=== PATIENT | male | born 1955 | race Hispanic/Latino ===

== ENCOUNTER 2018-03-14 13:05 | Inpatient (IN) | payer SELFPAY ==
[2018-03-14 13:38] VITALS: BMI 39.0
[2018-03-14] MEDS ORDERED: Vancomycin 500 mg Inj IVPB STA (13:45)
--- NOTE | 2018-03-14 13:50 | ED PDOC ---
Arrival/HPI - General Time Seen by Provider: 03/14/18 13:38 Historian: Patient - History of Present Illness Narrative History of Present Illness (Text): 62yo male, comes to Emergency room reporting left leg redness and swelling x 5 days. Patient states he initially had a fever and leg pain but denies any such symptoms currently. Patient reports he was seen by his PMD Dr. Scott yesterday and was prescribed oral antibiotics. Otherwise, patient has no additional medical complaints. Symptom Onset: Gradual Past Medical History - Provider Review Nursing Documentation Reviewed: Yes - Cardiac Hx Cardiac Disorders: Yes Hx Hypertension: Yes - Psychiatric Hx Substance Use: No Family/Social History - Physician Review Nursing Documentation Reviewed: Yes Family/Social History: No Known Family HX Smoking Status: cigars Hx Alcohol Use: Yes (moderate use) Hx Substance Use: No Allergies/Home Meds Allergies/Adverse Reactions: Allergies No Known Allergies Allergy (Verified 03/14/18 13:35) Home Medications: Home Meds Medication Instructions Recorded Confirmed RX: Doxycycline Monohydrate 100 mg PO BID 03/14/18 03/14/18 [Mondoxyne Nl] RX: amLODIPine [Norvasc] 10 mg PO DAILY 03/14/18 03/14/18 RX: Lisinopril/Hydrochlorothiazide 1 tab PO DAILY 03/17/18 03/17/18 [Lisinopril-Hctz 20-25 mg Tab] Review of Systems - Physician Review All systems were reviewed & negative as marked: Yes - Review of Systems Constitutional: absent: Fevers Musculoskeletal: Other (left leg swelling) Skin: Cellulitis Physical Exam - Physical Exam Narrative Physical Exam (Text): Gen: VS reviewed, alert, well developed, well nourished, nontoxic, mild distress. ENT: normal pharynx Eye: EOMI, PERRL Neck: no JVD, supple, no adenopathy CV: regular rate, regular rhythm, no rubs, no murmur, no gallops, S1, S2, pulses equal and strong Pulm: no distress, clear to auscultation, no wheeze, no rhonchi, breath sounds equal, no rales Abd: soft, nontender, no guarding, no rebound, no rigidity, normal bowel sounds Ext: (+) edema to left lower extremity Skin: (+) erythema and warm noted to left lower extremity. (+) ulceration anterior left lower extremity with purulent discharge Psych: responds appropriately to questions, normal affect Neuro: oriented x 3, CN2-12 intact grossly, motor intact, sensation intact Vital Signs Temp Pulse Resp BP Pulse Ox 03/14/18 13:37 98.2 F 76 18 156/72 H 97 Medical Decision Making ED Course and Treatment: Impression: 62yo male, cellulitis of left lower extremity; r/o DVT Plan: -- Labs -- US Doppler LLE -- Reassess and disposition Progress Notes: 03/14/18 16:[address] scott, patient to be admitted for iv abx treatment of left lower leg cellulitis. patient failed outpt po abx with an extensive cellulitis. dr. alvarez for consult. - RAD Interpretation Radiology Orders: 03/14/18 13:45 DUPLEX LOWER EXTRM VEIN LEFT [US] Stat - Medication Orders Current Medication Orders: Vancomycin HCl (Vancomycin Inj) 1,750 mg 15 mg/kg (1750 mg) IVPB STAT STA; Protocol Stop: 03/14/18 13:46 - Scribe Statement The provider has reviewed the documentation as recorded by the Negraibe Ariela Daugherty Provider Scribe Attestation: All medical record entries made by the Scribe were at my direction and personally dictated by me. I have reviewed the chart and agree that the record accurately reflects my personal performance of the history, physical exam, medical decision making, and the department course for this patient. I have also personally directed, reviewed, and agree with the discharge instructions and disposition. Disposition/Present on Arrival - Present on Arrival Any Indicators Present on Arrival: No History of DVT/PE: No History of Uncontrolled Diabetes: No Urinary Catheter: No History of Decub. Ulcer: No History Surgical Site Infection Following: None - Disposition Have Diagnosis and Disposition been Completed?: Yes Diagnosis: Cellulitis Disposition: HOSPITALIZED Disposition Time: 16:09 Patient Plan: Admission Condition: STABLE
[2018-03-14] MEDS ORDERED: Vancomycin 1.75 GM in Sodium Chloride 0.9% 500 ML IVPB ONE (14:00)
[2018-03-14 14:24] LABS: BASO # 0.03 K/mm3 (0.0-2.0); BASO % 0.2 % (0.0-3.0); EOS # 0.1 (0.0-0.7); EOS % 0.9 % (1.5-5.0); GRAN # 10.46 (1.4-6.5); GRAN % 79.7 % (50.0-68.0); HEMOGLOBIN 13.5 g/dL (14.0-18.0); LYMPH # 1.4 (1.2-3.4); LYMPH % 10.3 % (22.0-35.0); MEAN CORPUSCULAR HEMOGLOBIN 31.8 pg (25.0-35.0); MEAN CORPUSCULAR HGB CONC 34.5 g/dl (31.0-37.0); MONO # 1.2 (0.1-0.6); MONO % 8.9 % (1.0-6.0); RBC 4.25 10^6/uL (3.5-6.1); WHITE BLOOD COUNT 13.1 10^3/ul (4.5-11.0)
--- NOTE | 2018-03-14 15:10 | US ---
PROCEDURE: Left lower extremity venous US HISTORY: Leg pain and swelling. Evaluate for DVT. PHYSICIAN(S): Toribio Landry MD. TECHNIQUE: Duplex sonography and color-flow Doppler with graded compression were used to evaluate the deep venous system of the left lower extremity. The exam is limited by body habitus and edema. The tibial veins are not well seen FINDINGS: The visualized deep venous system of the left lower extremity is sonographically normal and compressible. Normal wave forms and augmentation are seen. There is no sonographic evidence for deep venous thrombosis in the visualized segments of the left lower extremity. IMPRESSION: 1. No sonographic evidence for deep venous thrombosis in the visualized segments of the left lower extremity. 2. Limited study.
[2018-03-14 15:34] LABS: BLOOD UREA NITROGEN 24 mg/dL (7-21); CALCIUM 9.7 mg/dL (8.4-10.5); GFR NON-AFRICAN AMERICAN > 60
[2018-03-14] MEDS ORDERED: Influenza Vaccine 60 mcg/0.5 mL SYR (4YR UP) IM ONE (19:06)
[2018-03-14] MEDS ORDERED: Potassium Chloride 20 mEq ER Tab PO ONE ×2 (19:06→22:45)
[2018-03-14] MEDS ORDERED: Pneumococcal 23-Valent Vaccine IM ONE (19:06)
[2018-03-15] MEDS: Piperacillin/Tazobact 2.25gm 2.25 GM/100 ML BAG IVPB SCH ×2 (00:36→05:36)
[2018-03-15] MEDS: Vancomycin 1gm in NS 250ml 1 GM/250 ML BAG IVPB SCH ×2 (02:09→13:00)
--- NOTE | 2018-03-15 05:21 | HP ---
HISTORY OF PRESENT ILLNESS: I saw him in the office a few days ago. He had a very bad left leg redness and swelling for a few days before he got to me in the office. He did not want to go to the hospital at that time because he does not have insurance. I put him on Vantin, doxycycline and Bactroban cream. Told him to elevate the legs. He is a 62-year-old white male, presents to the emergency room with worsening of a left leg cellulitis. It is bright red now, was not like that when I saw him in the office and before he was on the antibiotics. It is also very very hot to touch. He is having a fever. PAST MEDICAL HISTORY: He has a past medical history of hypertension. FAMILY HISTORY: There is hypertension in the family. SOCIAL HISTORY: He smokes cigars. He does drink alcohol moderately. No substance abuse. ALLERGIES: NO KNOWN DRUG ALLERGIES. MEDICATIONS: He was on Vantin, doxycycline, Bactroban cream, Norvasc and lisinopril and hydrochlorothiazide for his blood pressure. REVIEW OF SYSTEMS: No acute vision or hearing changes. No sore throat. No neck pain. No chest pain or palpitations. No shortness breath or cough. No abdominal pain, nausea, vomiting, constipation, diarrhea. His legs, the left leg is extremely swollen, also red, inflamed, hot to touch, tender and it is much more bright red than it was a few days ago before he started the antibiotics. PHYSICAL EXAMINATION: VITAL SIGNS: He has a 98.2 temp, 76 pulse, 18 respiratory rate, 156/72 blood pressure, 97% O2 sat on room air. HEENT: His head is atraumatic, normocephalic. Extraocular muscles are intact. Throat is moist. NECK: Supple. HEART: Regular rate. LUNGS: Decreased breath sounds, but clear to auscultation. No wheezes. No rhonchi. No rales. ABDOMEN: Soft, nontender. Positive bowel sounds. He is obese. No guarding, no rebound, no CVA tenderness. EXTREMITIES: He has got +1/4 pitting edema, left leg and right leg. The left leg is extremely bright red, hot to touch. There is an ulceration in the anterior left lower extremity with purulent discharge. NEUROLOGIC: He is alert and oriented x3. Normal affect. Cranial nerves II through XII grossly intact. LYMPHATICS: Thyroid midline. No palpable appreciable lymphadenopathy. LABORATORY DATA: So we had a couple of tests done the ER. The venous Doppler was negative. He had blood tests. The white count is 13.1, hemoglobin 13.5, hematocrit 39.1, platelets of 267. He has a 142 sodium; potassium 3.3, I gave him potassium; BUN is 24; creatinine 0.9, he will be on IV fluids; GFR is 60; random sugar is 111; calcium is 9.7. IMPRESSION: He has a failed outpatient cellulitis, which has gotten much worse after being on Vantin and doxycycline and Bactroban cream and it is tender and he has had a severe acute cellulitis of the left leg, very aggressive looking. Omer Schulz DO
[2018-03-15 08:00] LABS: HEMOGLOBIN 12.8 g/dL (14.0-18.0); MEAN CELL VOLUME 92.6 fl (80.0-105.0); MEAN CORPUSCULAR HEMOGLOBIN 31.4 pg (25.0-35.0); MEAN PLATELET VOLUME 9.7 fl (7.0-11.0); RBC 4.07 10^6/uL (3.5-6.1); RED CELL DISTRIBUTION WIDTH 12.7 % (11.5-14.5); WHITE BLOOD COUNT 12.9 10^3/ul (4.5-11.0)
[2018-03-15 08:09] LABS: ALB/GLOB RATIO 1.1 (1.1-1.8); ALBUMIN 3.5 g/dL (3.0-4.8); ALT/SGPT 56 U/L (7-56); AST/SGOT 50 U/L (17-59); BLOOD UREA NITROGEN 22 mg/dL (7-21); CALCIUM 9.1 mg/dL (8.4-10.5); GFR NON-AFRICAN AMERICAN > 60
[2018-03-15] MEDS: Clotrimazole 1% Cream(30 gm) TOP SCH ×2 (09:06→17:39)
--- NOTE | 2018-03-15 09:45 | PN ---
DATE: 03/15/2018 SUBJECTIVE: He is resting in bed. The left leg still hurts, it is still very red and still a little bit swollen, but to me, it looks a little bit better. He is alert, he is eating. He is comfortable. PHYSICAL EXAMINATION: VITAL SIGNS: Temperature 97.9 temp, it was 100.2 last night; 52 pulse; 156/71 blood pressure; 19 respiratory rate; 96% O2 sat on room air. HEENT: Head is atraumatic, normocephalic. HEART: Regular rate. LUNGS: Decreased breath sounds, but clear. ABDOMEN: Soft, obese, nontender. Positive bowel sounds. EXTREMITIES: The left leg is not as aggressive red. It is still hot, but not as hot. Still tenderness and may be receding a little bit from the lines that were drawn in the ER. MEDICATIONS: He is on Zestril, vancomycin IV, Norvasc, Lotrimin, HydroDIURIL. LABORATORY DATA: He has 13.1 white count yesterday with a 13.5 hemoglobin and 267 platelets. He has 142 sodium, potassium 3.3 yesterday and was replaced, BUN 24, creatinine 0.9. GFR is greater than 60. There are labs pending this morning. ASSESSMENT AND PLAN: He was seen by the Infectious Disease doctor. His antibiotics were changed. He is now just on vancomycin IV. He is also on Lotrimin cream. We will continue with aggressive treatment and care for his left leg cellulitis. Check the labs tomorrow, I do think the redness is starting to slowly improve. He is here for left leg cellulitis, failed outpatient therapy. Omer Schulz DO
--- NOTE | 2018-03-15 09:47 | CON ---
DATE: 03/15/2018 LOCATION: The patient is seen in room 366. CHIEF COMPLAINT: Left leg erythema x1 to 2 days duration. HISTORY OF PRESENT ILLNESS: This is a 62-year-old male with history of hypertension who was admitted with acute onset of left leg erythema. He denies any trauma. There is no nausea, no vomiting, no chest pain. REVIEW OF SYSTEMS: The 12-point review of systems is performed. PAST MEDICAL HISTORY: Significant only for hypertension. PAST SURGICAL HISTORY: The patient has not had any surgery. MEDICATIONS AT HOME: Include the patient to be amlodipine, which is Norvasc. SOCIAL HISTORY: He lives alone. He has no travel history. He has two cats. He was given antibiotics as outpatient with failure. PHYSICAL EXAMINATION: VITAL SIGNS: Temperature is 98, T-max is 100.2, respiratory rate is 18, heart rate of 64, blood pressure 156/71. HEENT: Examination is unremarkable. NECK: Supple. LUNGS: Have decreased breath sounds. HEART: Normal S1, S2. ABDOMEN: Soft. EXTREMITIES: Examination of left leg, significant erythema in his ankle and traveling up to his knee. The patient does have tinea between his toes. DATA: Laboratory examination reveals a white count of 13,000, hemoglobin of 13. Chemistries are noted. Glucose is elevated at 117. ASSESSMENT AND PLAN: This is a 62-year-old male with hypertension. Outpatient antibiotic failure now with low-grade fever of 100.2 and white count of 13,000. 1. Left lower extremity cellulitis with leukocytosis. We will treat the patient with vancomycin and pending wound cultures, blood cultures, MRSA screen, HIV tests and hemoglobin A1c. I will make further recommendations upon availability. Alex Blackman MD
[2018-03-16] MEDS: Vancomycin 1gm in NS 250ml 1 GM/250 ML BAG IVPB SCH ×2 (00:23→12:09)
[2018-03-16 07:16] LABS: HEMOGLOBIN 12.7 g/dL (14.0-18.0); MEAN CELL VOLUME 91.9 fl (80.0-105.0); MEAN CORPUSCULAR HEMOGLOBIN 31.2 pg (25.0-35.0); MEAN PLATELET VOLUME 9.5 fl (7.0-11.0); RBC 4.07 10^6/uL (3.5-6.1); RED CELL DISTRIBUTION WIDTH 12.6 % (11.5-14.5); WHITE BLOOD COUNT 11.6 10^3/ul (4.5-11.0)
[2018-03-16 07:26] LABS: ALB/GLOB RATIO 1.1 (1.1-1.8); ALBUMIN 3.6 g/dL (3.0-4.8); ALT/SGPT 55 U/L (7-56); AST/SGOT 47 U/L (17-59); BLOOD UREA NITROGEN 18 mg/dL (7-21); CALCIUM 9.2 mg/dL (8.4-10.5); GFR NON-AFRICAN AMERICAN > 60
[2018-03-16] MEDS: Clotrimazole 1% Cream(30 gm) TOP SCH ×2 (10:12→17:07)
--- NOTE | 2018-03-16 10:19 | PN ---
DATE: 03/16/2018 SUBJECTIVE: I saw him in bed resting comfortably. Little bit better. He still has pain to the left leg. He is on hydrochlorothiazide, clotrimazole cream, Norvasc, Tylenol, vancomycin IV and Zestril. PHYSICAL EXAMINATION: VITAL SIGNS: He has a 97.5 temperature, pulse 53, 162/70 blood pressure, 20 respiratory rate, 96% O2 sat on room air. HEAD: Atraumatic, normocephalic. HEART: Regular rate. LUNGS: Decreased breath sounds, but clear. ABDOMEN: Soft, obese, nontender. EXTREMITIES: Left leg is still red, maybe not as aggressively red as it is beginning to decrease from the lines with pain in his legs, but the outline of the cellulitis is about half an inch down and less aggressive as well as improving. LABORATORY DATA: He has a 11.6 white count, that is coming down. Also, 12.7 hemoglobin, 37.4 hematocrit with 318 platelets. He has a 139 sodium, potassium 4.4, BUN18, creatinine 1, GFR greater than 60, sugar is 116, calcium is 9.2, total bili is 0.5. AST is 47, ALT is 55, alk phos 54, total protein is 6.7. HIV is nonreactive. He is being seen by Infectious Disease. He has a bad cellulitis of the left lower extremity, leukocytosis, vancomycin. He is starting to improve with white count decreasing and the redness is less aggressive, not as hot and is starting to recede from the original lines where it was when he came in. Continue aggressive treatment and care. Omer Schulz DO
--- NOTE | 2018-03-16 22:45 | PN ---
DATE: 03/16/2018 SUBJECTIVE: The patient is seen earlier today, in no acute distress, nontoxic. PHYSICAL EXAMINATION: VITAL SIGNS: On exam, temperature 98, blood pressure is 160/70, respiratory rate of 18, heart rate of 64. HEENT: Examination of HEENT is unremarkable. NECK: Supple. LUNGS: Have decreased breath sounds. HEART: Normal S1, S2. ABDOMEN: Soft. LABORATORY DATA: Laboratory examination reveals a white count of 11,600, hemoglobin of 12. Chemistries are noted. Serology is negative. Blood cultures are negative. ASSESSMENT AND PLAN: A 62-year-old male was seen earlier this morning with history of hypertension and left lower extremity cellulitis, leukocytosis secondary to tenia. The patient is currently on vancomycin. The leg is much improved. If continues to improve, we will be able to change to p.o. antibiotics in the next 24 hours. Alex Blackman MD
[2018-03-17] MEDS: Vancomycin 1gm in NS 250ml 1 GM/250 ML BAG IVPB SCH (00:18)
[2018-03-17 06:10] LABS: HEMOGLOBIN 13.3 g/dL (14.0-18.0); MEAN CELL VOLUME 92.2 fl (80.0-105.0); MEAN CORPUSCULAR HEMOGLOBIN 31.4 pg (25.0-35.0); MEAN CORPUSCULAR HGB CONC 34.1 g/dl (31.0-37.0); MEAN PLATELET VOLUME 9.5 fl (7.0-11.0); RBC 4.23 10^6/uL (3.5-6.1); RED CELL DISTRIBUTION WIDTH 12.4 % (11.5-14.5); WHITE BLOOD COUNT 12.3 10^3/ul (4.5-11.0)
[2018-03-17 06:38] LABS: ALB/GLOB RATIO 1.1 (1.1-1.8); ALBUMIN 3.6 g/dL (3.0-4.8); ALT/SGPT 49 U/L (7-56); AST/SGOT 45 U/L (17-59); BLOOD UREA NITROGEN 15 mg/dL (7-21); CALCIUM 9.3 mg/dL (8.4-10.5); GFR NON-AFRICAN AMERICAN > 60
[2018-03-17] MEDS: Clotrimazole 1% Cream(30 gm) TOP SCH (09:34)
[2018-03-17 09:36] VITALS: BP 150/70
--- NOTE | 2018-03-17 09:41 | PN ---
DATE: 03/17/2018 SUBJECTIVE: He is resting comfortably in bed. He feels a bit better in the left leg, came in with a very bad cellulitis and pain. He has been treated with antibiotics by Dr. Blackman, I was hoping to possibly discharge him today if the white count did drop, but it did not all the way. He has got 98.2, 64 pulse, 180/82 blood pressure, 19 respiratory rate, 90% O2 sat. I will adjust his blood pressure medications. He does feel the leg is getting better, it does look better. It is receding from the initial pickett in the ER with pen on his leg and the redness is not as aggressive. MEDICATIONS: He is currently on HydroDIURIL, Lotrisone, Norvasc, Tylenol, vancomycin IV and Zestril. LABORATORY DATA: He has a white count, which was 11.6 today, it went up to 12.3; hemoglobin 13.3; hematocrit 39; platelets of 382. He might need one more day of IV antibiotics. Sodium is 140, potassium 4.2, BUN 15, creatinine 1. GFR is greater than 60. Sugar is 116, calcium is 9.3, total bili is 0.5. AST is 45, ALT is 49, alkaline phosphatase 58, total protein is 7.1. PLAN: I will discuss this with Infectious Disease if we could change it to oral antibiotics yet or because the white count went up, we might keep him one more day, I am not sure. Clinically, he is improved in the leg and he failed outpatient treatment with Vantin, doxy and Bactroban cream before he got to the hospital. He hoes not have any insurance from what I understand. we are going to put him on Zyvox, that might be a problem because I do not think he is going to afford it. I will discuss this with Infectious Disease and licensed clinical social worker, but if we can, we will try and discharge him if it is okay. We will get it covered. He is here with severe left leg cellulitis, failed outpatient treatment. Omer Schulz DO ESEQU[facility]EL
[2018-03-17 09:45] VITALS: PULSE 59; RESP 20; TEMP 98; O2SAT 95
--- NOTE | 2018-03-17 12:55 | CP.PCM.PN ---
Subjective - Date & Time of Evaluation Date of Evaluation: 03/17/18 Time of Evaluation: 08:35 - Subjective Subjective: Feels better, left leg is improving, less swollen and less pain, no fevers overnight. Objective - Vital Signs/Intake and Output Vital Signs (last 24 hours): Temp Pulse Resp BP Pulse Ox 98.0 F 59 L 20 150/70 95 03/17/18 06:00 03/17/18 06:00 03/17/18 06:00 03/17/18 09:34 03/17/18 06:00 - Medications Medications: Current Medications Acetaminophen (Tylenol 325mg Tab) 650 mg PO Q4H PRN PRN Reason: Pain, moderate (4-7) Last Admin: 03/16/18 05:41 Dose: 650 mg Amlodipine Besylate (Norvasc) 10 mg PO DAILY [facility] Last Admin: 03/17/18 09:34 Dose: 10 mg Clotrimazole (Lotrimin 1%) 0 gm TOP BID [facility] Last Admin: 03/17/18 09:34 Dose: 1 unit Hydrochlorothiazide (Hydrodiuril) 25 mg PO DAILY [facility] Last Admin: 03/17/18 09:34 Dose: 25 mg Vancomycin HCl (Vancomycin 1gm) 1 gm in 250 mls @ 167 mls/hr IVPB Q12H [facility]; Protocol Stop: 03/24/18 00:31 Last Admin: 03/17/18 00:18 Dose: 167 mls/hr Lisinopril (Zestril) 40 mg PO DAILY [facility] - Labs Labs: 03/17/18 05:30 03/17/18 05:30 - Constitutional Appears: Non-toxic, No Acute Distress - Head Exam Head Exam: NORMAL INSPECTION - Neck Exam Neck Exam: absent: Meningismus - Respiratory Exam Respiratory Exam: Decreased Breath Sounds - Cardiovascular Exam Cardiovascular Exam: +S1, +S2 - GI/Abdominal Exam GI & Abdominal Exam: Soft. absent: Tenderness - Extremities Exam Additional comments: left leg with improved swelling and decreased erythema on the anterior portion of the leg Assessment and Plan - Assessment and Plan (Free Text) Plan: Assessment Left lower extremity cellulitis, clinically improving, with tinea pedis HTN obesity with BMI 39 Plan On Vancomycin day 2; patient can be switched to PO Doxycycline and Augmentin for another 5-7 days, as well as Clotrimazole, with outpatient follow up with Dr. Schulz - discussed with Dr. Schulz
== END 2018-03-17 15:10 | disposition home or self-care (01) | DRG 603 ==
LOC: ED 13:05 → ERH 16:03 → 3RNO 18:26
PROVIDERS: ADMIT Family Medicine; ATTEND Family Medicine
DX: L03.116 Cellulitis of left lower limb (principal); I10 Essential (primary) hypertension; B35.3 Tinea pedis; Z68.39 Body mass index [BMI] 39.0-39.9, adult; E66.9 Obesity, unspecified; F17.290 Nicotine dependence, other tobacco product, uncomplicated; Z82.49 Family history of ischemic heart disease and other diseases of the circulatory system